=== PATIENT | female | born 1965 ===

== ENCOUNTER → 2019-04-01 | Day surgery (SDC) | payer OTHER ==
[~2019-04-01] MED LIST: ATACAND32 MG PO; FLONASE16 GM NASAL; LEVOT PO; MULTIPLE VITAM1 EACH PO; NORVASC5 MG PO; PERCOCET 5-3251 EACH PO; SYNTHROID50 MCG PO; ZYRTEC10 M3 PO
== END | disposition home or self-care (01) ==
LOC: ADM 03-28 10:15 → CIR.AMB 07:50
DX: N83.292 Other ovarian cyst, left side (principal); N73.6 Female pelvic peritoneal adhesions (postinfective)